=== PATIENT | male | born 1990 | race American Indian/Alaskan Native ===

== ENCOUNTER 2018-08-30 14:10 | Emergency (ER) | payer OTHER ==
[2018-08-30 14:19] VITALS: TEMP 97.9
[2018-08-30 14:40] VITALS: BMI 29.2
--- NOTE | 2018-08-30 14:43 | ED PDOC ---
Arrival/HPI - General Time Seen by Provider: 08/30/18 14:17 Historian: Patient - History of Present Illness Narrative History of Present Illness (Text): 08/30/18 14:44 27 year old M with no significant pmh presents for evaluation after inhalation. 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 Reports exposure to [employer] AR-AFFF Foam. Patient recalls SOB five minutes after exposure to chemical stopped, and that SOB has since resolved. Patient denies any fevers, chills, headache, dizziness, chest pain, dyspnea on exertion, cough, abdominal pain, nausea, vomiting, diarrhea, back pain, neck pain, or any other complaint. 08/30/18 17:17 Time/Duration: 1-3 hours Symptom Onset: Sudden Symptom Course: Unchanged Activities at Onset: Light Context: Work Past Medical History - Provider Review Nursing Documentation Reviewed: Yes Family/Social History - Physician Review Nursing Documentation Reviewed: Yes Family/Social History: Unknown Family HX Allergies/Home Meds Allergies/Adverse Reactions: Allergies No Known Allergies Allergy (Unverified 08/30/18 14:37) Review of Systems - Review of Systems Constitutional: absent: Fevers ENT: absent: Sore Throat, Rhinorrhea Respiratory: SOB (now resolved). absent: Cough Cardiovascular: absent: Chest Pain, Palpitations Gastrointestinal: absent: Abdominal Pain, Constipation, Diarrhea, Nausea, Vomiting Genitourinary Male: absent: Dysuria, Frequency Musculoskeletal: absent: Arthralgias, Back Pain, Neck Pain Neurological: absent: Headache, Dizziness Hemo/Lymphatic: absent: Adenopathy, Easy Bleeding, Easy Bruising Psychiatric: absent: Anxiety, Depression Physical Exam Vital Signs Reviewed: Yes Vital Signs Temp Pulse Resp BP Pulse Ox 08/30/18 14:18 97.9 F 71 18 122/48 L 97 Temperature: Afebrile Blood Pressure: Normal Pulse: Regular Respiratory Rate: Normal Appearance: Positive for: Well-Appearing, Non-Toxic, Comfortable Pain Distress: None Mental Status: Positive for: Alert and Oriented X 3 - Systems Exam Head: Present: Atraumatic, Normocephalic Pupils: Present: PERRL Extroacular Muscles: Present: EOMI Conjunctiva: Present: Normal Mouth: Present: Moist Mucous Membranes Neck: Present: Normal Range of Motion Respiratory/Chest: Present: Clear to Auscultation, Good Air Exchange. No: Respiratory Distress, Accessory Muscle Use Cardiovascular: Present: Regular Rate and Rhythm, Normal S1, S2. No: Murmurs Abdomen: No: Tenderness, Distention, Peritoneal Signs Back: Present: Normal Inspection Upper Extremity: Present: Normal Inspection. No: Cyanosis, Edema Lower Extremity: Present: Normal Inspection. No: Edema Neurological: Present: GCS=15, CN II-XII Intact, Speech Normal Skin: Present: Warm, Dry, Normal Color. No: Rashes Psychiatric: Present: Alert, Oriented x 3, Normal Insight, Normal Concentration Medical Decision Making ED Course and Treatment: 08/30/18 14:39 Impression: 27 year old M presents for evaluation after exposure. Now asymptmatic. Plan: -- ABG shock panel -- CXR -- Reassess and disposition Prior Visits: Notes and results from previous visits were reviewed. Patient was last seen in the emergency department on [facility] Notes: EKG: Ordered, reviewed, and independently interpreted the EKG. Rate: 61 BPM Rhythm: NSR Interpretation: No ST-segment elevations or depressions, no T-wave inversions, normal intervals. Comparison: No previous EKG for comparison. 08/30/18 15:30 ABG resulted and Measured CoHB of 4.1. Unclear why this is not resulting in the computter. P02 161 and Pc02 42 with ph 7.41. Spoke to poison control. Aware of CoHb:4.1 08/30/18 15:33 Poison control looked at exposure and reports supportive care of local irritation 08/30/18 16:15 08/30/18 16:25 Cxray negative. Reports resolution of symptoms. Will dc 08/30/18 17:18 - Scribe Statement The provider has reviewed the documentation as recorded by the Sharri Culp All medical record entries made by the Scribe were at my direction and personally dictated by me. I have reviewed the chart and agree that the record accurately reflects my personal performance of the history, physical exam, medical decision making, and the department course for this patient. I have also personally directed, reviewed, and agree with the discharge instructions and disposition. Disposition/Present on Arrival - Present on Arrival Any Indicators Present on Arrival: No - Disposition Have Diagnosis and Disposition been Completed?: Yes Diagnosis: Inhalation injury Disposition: HOME/ ROUTINE Disposition Time: 16:25 Patient Plan: Discharge Condition: GOOD Additional Instructions: Follow-up with PMD within 2 days. Cleared to return to work. Return to ED immediately if condition worsens. Forms: WORK NOTE
[2018-08-30 14:58] LABS: ARTERIAL BLOOD GAS HCO3 26.6 mmol/L (21-28); ARTERIAL BLOOD GAS O2 SAT 99.3 % (95-98); ARTERIAL BLOOD GAS PCO2 41 mm/Hg (35-45); ARTERIAL BLOOD GAS PH 7.42 (7.35-7.45); ARTERIAL BLOOD GAS TCO2 27.9 mmol.L (22-28)
[2018-08-30 16:23] LABS: ARTERIAL BLOOD GAS HCO3 26.6 mmol/L (21-28); ARTERIAL BLOOD GAS PCO2 42 mm/Hg (35-45); ARTERIAL BLOOD GAS PH 7.41 (7.35-7.45)
[2018-08-30 16:25] LABS: ARTERIAL BLOOD GAS FIO2 21 %; ARTERIAL BLOOD GAS O2 SAT 99.7 % (95-98); ARTERIAL BLOOD GAS TCO2 27.9 mmol.L (22-28)
[2018-08-30 16:28] LABS: ARTERIAL BLOOD GAS HEMOGLOBIN 14.4 g/dL (11.7-17.4)
--- NOTE | 2018-08-30 16:30 | RAD ---
Date of service: 08/30/2018 HISTORY: Difficulty breathing COMPARISON: No prior. TECHNIQUE: Chest PA and lateral views FINDINGS: LUNGS: No active pulmonary disease. PLEURA: No significant pleural effusion identified. No pneumothorax apparent. CARDIOVASCULAR: No aortic atherosclerotic calcification present. Normal cardiac size. No pulmonary vascular congestion. OSSEOUS STRUCTURES: No significant abnormalities. VISUALIZED UPPER ABDOMEN: Normal. OTHER FINDINGS: None. IMPRESSION: No active disease.
[2018-08-30 16:55] VITALS: BP 125/63; PULSE 65; RESP 18; O2SAT 99
--- NOTE | 2018-08-30 21:32 | CARD ---
APPROVED REPORT Date of service: 08/30/2018 EKG Measurement Heart [id number] <Conclusion> Normal sinus rhythm Normal ECG
== END 2018-08-30 16:55 | disposition home or self-care (01) ==
LOC: ED 14:10
DX: T65.891A Toxic effect of other specified substances, accidental (unintentional), initial encounter (principal); Y92.89 Other specified places as the place of occurrence of the external cause